=== PATIENT | male | born 1945 | race Caucasian/White ===

== ENCOUNTER → 2024-01-22 12:40 | Emergency (ER) | payer MEDICARE, SELFPAY ==
[2024-01-22 12:44] VITALS: BP 98/59
[2024-01-22 13:06] LABS: % Basophils 0.7 % (0-2); % Eosinophils 1.4 % (0-6); % Immature Granulocytes 0.3 % (0-0.5); % Lymphocytes 16.4 % (20.5-51.1); % Monocytes 6.1 % (1.7-9.3); % Neutrophils 75.1 % (42.2-75.2); Absolute Basophils 0.1 10^3/uL (0-0.2); Absolute Eosinophils 0.2 10^3/uL (0-0.7); Absolute Lymphocytes 1.8 10^3/uL (1.2-3.4); Absolute Monocytes 0.7 10^3/uL (0.1-0.6); Hematocrit 40.6 % (39.0-52.0); Hemoglobin 13.2 g/dL (13.0-18.0); Mean Corp Hgb Conc. 32.5 g/dL (33.0-37.0); Mean Corpuscular Hgb 29.4 pg (27.0-31.0); Mean Corpuscular Volume 90.4 fL (80.0-94.0); Mean Platelet Volume 10.3 fL (7.4-10.4); Nucleated Red Blood Cells % 0 % (-); Platelet Count 182 10^3/uL (130-400); Red Blood Cell Count 4.49 10^6/uL (4.70-6.10); Red Cell Dist. Width 13.5 % (11.5-14.5); White Blood Cell Count 10.7 10^3/uL (4.8-10.8)
[2024-01-22 13:16] LABS: ALT (SGPT) < 10 U/L (0-50); AST (SGOT) 21 U/L (17-59); Albumin 3.9 g/dl (3.5-5.0); Alkaline Phosphatase 114 U/L (38-126); Blood Urea Nitrogen 20 mg/dl (9-20); Calcium 9.2 mg/dl (8.4-10.2); Carbon Dioxide 26 mmol/L (22-30); Chloride 106 mmol/L (98-107); Glucose 130 mg/dl (70-99); Potassium 3.8 mmol/L (3.5-5.1); Sodium 140 mmol/L (135-145); Total Bilirubin 0.9 mg/dl (0.2-1.3); Total Protein 6.9 g/dl (6.3-8.2); eGFR > 60.00
== END ==
LOC: EMR 12:40
PROVIDERS: EMERGENCY PHYSICIAN Emergency Medicine
DX: R00.0 Tachycardia, unspecified (principal); I95.9 Hypotension, unspecified
CPT/HCPCS: 80053; 85025; 93005

== ENCOUNTER → 2024-04-04 15:53 | Outpatient (REF) | payer MEDICARE, SELFPAY | LOC: HWRCS 15:53 | PROVIDERS: ATTENDING PHYSICIAN Internal Medicine Cardiovascular Disease; FAMILY PHYSICIAN Family Medicine | DX: I48.0 Paroxysmal atrial fibrillation (principal); G20.A1 Parkinson's disease without dyskinesia, without mention of fluctuations; R29.6 Repeated falls | CPT/HCPCS: 93306 ==

== ENCOUNTER → 2024-04-16 06:47 | Outpatient (REF) | payer MEDICARE, SELFPAY ==
[2024-04-16] MEDS: LEXISCAN 0.4 MG IV (08:56)
== END ==
LOC: RCS 06:47
PROVIDERS: ATTENDING PHYSICIAN Internal Medicine Cardiovascular Disease; FAMILY PHYSICIAN Family Medicine
DX: I48.0 Paroxysmal atrial fibrillation (principal); G20.A1 Parkinson's disease without dyskinesia, without mention of fluctuations; R29.6 Repeated falls
CPT/HCPCS: 78452; 93017; A9500; J2785

== ENCOUNTER 2024-06-06 22:50 | Inpatient (IN) | payer MEDICARE, SELFPAY ==
[2024-06-06 18:13] VITALS: BP 102/55
[2024-06-06 18:32] LABS: % Basophils 0.5 % (0-2); % Eosinophils 0.7 % (0-6); % Immature Granulocytes 0.5 % (0-0.5); % Lymphocytes 8.4 % (20.5-51.1); % Monocytes 8.8 % (1.7-9.3); % Neutrophils 81.1 % (42.2-75.2); Absolute Basophils 0.1 10^3/uL (0-0.2); Absolute Eosinophils 0.1 10^3/uL (0-0.7); Absolute Immature Granulocytes 0.1 10^3/uL (0-0.05); Absolute Lymphocytes 1.1 10^3/uL (1.2-3.4); Absolute Monocytes 1.2 10^3/uL (0.1-0.6); Absolute Neutrophils 10.8 10^3/uL (1.4-6.5); Hemoglobin 12.3 g/dL (13.0-18.0); Mean Corp Hgb Conc. 34.2 g/dL (33.0-37.0); Mean Corpuscular Hgb 29.6 pg (27.0-31.0); Mean Corpuscular Volume 86.5 fL (80.0-94.0); Mean Platelet Volume 10.1 fL (7.4-10.4); Nucleated Red Blood Cells % 0 % (-); Platelet Count 218 10^3/uL (130-400); Red Blood Cell Count 4.16 10^6/uL (4.70-6.10); Red Cell Dist. Width 13.3 % (11.5-14.5); White Blood Cell Count 13.2 10^3/uL (4.8-10.8)
[2024-06-06 18:48] LABS: COVID-19 Antigen Negative (Negative)
[2024-06-06 19:06] LABS: ALT (SGPT) 10 U/L (0-50); AST (SGOT) 43 U/L (17-59); Albumin 3.6 g/dl (3.5-5.0); Alkaline Phosphatase 87 U/L (38-126); Blood Urea Nitrogen 23 mg/dl (9-20); Calcium 8.7 mg/dl (8.4-10.2); Carbon Dioxide 25 mmol/L (22-30); Chloride 102 mmol/L (98-107); Creatine Phosphokinase 428 U/L (55-170); Glucose 121 mg/dl (70-99); Potassium 3.5 mmol/L (3.5-5.1); Sodium 139 mmol/L (135-145); Total Bilirubin 1.7 mg/dl (0.2-1.3); Total Protein 6.3 g/dl (6.3-8.2); eGFR 56.93
[2024-06-06 19:08] VITALS: BP 132/87
--- NOTE | 2024-06-06 19:11 | ED.GENMED ---
History of Present Illness
<EVELYN Mcdowell - Last Filed: 06/06/24 19:59>
General
Chief Complaint: Change in Mental Status
Source: patient
Exam Limitations: altered mental status
Time Seen by Provider: 06/06/24 19:08
Nursing documentation reviewed up to this point in time: agreed with
History of Present Illness
History of Present Illness:
Pt is a 78 y/o M with pmhx of parkinsons who presents with his son and has complaints of altered mental status and multiple falls x 4 days. The pt's son reports that the pt has been falling multiple times a day since Sunday, one of which included a
posterior head injury. There are no visible signs of head injury. The pt reports lightheadedness when he stands up and pain and weakness in his left lower extremity when he attempts to bear weight on the leg. He usually ambulates with a walker for
assistance but recently he has been unable to walk. He has had 3 falls today alone. There is associated back pain, left hip pain that radiates up his left side, confusion, and expressive aphasia. The pt reports dark urination possibly with blood
which started yesterday. He admitted that he has not been hydrating well recently. Denies fever, chest pain, SOB, numbness, tingling, dysuria, headache, neck pain, or weakness in the bilateral upper extremities and right lower extremity.
Past History
<EVELYN Mcdowell - Last Filed: 06/06/24 19:59>
Past History
ED Past Medical History: HTN, Hypercholesterolemia and Other (Parkinson's disease)
ED Past Surgical History: Appendectomy and Cholecystectomy
Social History
Tobacco: Non-smoker
Alcohol: Former (Beer)
Drug: None
Personal:
Living: with family
Review of Systems
<EVELYN Mcdowell - Last Filed: 06/06/24 19:59>
Review of Systems
Allergies reviewed?: Yes
Other source history: family (son)
Constitutional: Reports no symptoms
EENT: Reports no symptoms
Respiratory: Reports no symptoms
Cardiac: Reports no symptoms
ABD/GI: Reports no symptoms
: Reports dark urine
Musculoskeletal: Reports joint pain (left hip) and back pain
Skin: Reports no symptoms
Neurological: Reports dizzy and weakness (Left lower extremity)
Endocrine: Reports no symptoms
Hematologic/Lymphatic: Reports no symptoms
Psychiatric: Reports no symptoms
Phy Exam
<EVELYN Mcdowell - Last Filed: 06/06/24 19:59>
General Physical Exam
General Presentation: no apparent distress
General age: appears stated age
General Skin: warm and dry
General Habitus: debilitated and elderly
General Mental: confused
General Hydration: dry mucous membranes and poor skin turgor
ENT Exam
ENT Exam: EOMI, neck supple, normocephalic and swallowing well
Eye Exam
Eye Exam: PERRL, EOMI, cornea clear, conjunctiva normal and globe normal
Cardiovascular Exam
Cardiovascular Exam: normal peripheral pulses and tachycardia
Pulmonary Exam
Pulmonary Exam: lungs clear, no respiratory distress, no rales, chest non tender, no crackles, no rhonchi, no stridor, no wheezing and no cough
Gastrointestinal Exam
Gastrointestinal Exam: normal bowel sounds, soft, non distended, no cva tenderness and no indwelling devices
Palpation: left upper quadrant: Minimal tenderness, left lower quadrant: No tenderness, right upper quadrant: No tenderness and right lower quadrant: No tenderness
Neurological Exam
Neurological Exam: CN II-XII intact, abnormal gait, confused, dysarthric and expressive aphasia
NIH Stroke Score
Level of Consciousness: 0 - Alert
LOC questions: 0-Answers both correctly
LOC Commands: 0-Performs both correctly
Best Gaze: 0-Normal
Visual Claire: 0=Normal, no visual loss
Facial palsy: 0=Normal, symmetrical
Motor - Right Arm: 0=No drift 10 seconds
Motor - Left Arm: 0=No drift 10 seconds
Motor - Right Le-No drift 5 seconds
Motor - Left Le-Partial vs. gravity
Limb Ataxia: 1-Present in one limb
Sensation: 0-Normal
Best Language: 1-Mild aphasia
Dysarthria: 1-Mild slurring
Extinction and Inattention: 0-No abnormality
Total Score:: 5
Mental
Mental Status: oriented to person, oriented to place, oriented to time, usual mental status, confused and responds to voice
Describe Speech: dysarthric speech, expressive aphasia and slurred
Cranial
EOM (CN3/6): intact
Motor
Tremors: parkinsonian
Right upper extremity: 5
Right lower extremity: 5
Left upper extremity: 5
Left lower extremity: 3
Musculoskeletal Exam
Musculoskeletal Exam: back pain, no edema and other (Unable to flex left hip from seated position.)
Skin Exam
Skin Exam: normal color, warm/dry and other (Poor skin turgor. No signs of ecchymosis on head or back.)
Psychiatric Exam
Psychiatric Exam: normal mood/affect and other
<Ekaterina Santos DO - Last Filed: 06/06/24 21:57>
NIH Stroke Score
Total Score:: 5
Course
<EVELYN Mcdowell - Last Filed: 06/06/24 19:59>
Orders/Labs/Results
Orders:
Orders
06/06/24 18:25
CBC/With Diff [Complete Blood Count/With Diff] Urgent
CMP [Comprehensive Metabolic Panel] Urgent
COVID-19 Antigen Urgent
Source: Nasal Swab
CPK [Creatine Phosphokinase] Urgent
06/06/24 19:19
CT Head W/o Iv Contrast Urgent
Comment:
Reason For Exam: acute change in MS, frequent falls
06/06/24 19:20
Electrocardiogram (*1) Urgent
Reason for Study: Tachycardia
EKG- Treatment ONCE
0.9% Sodium Chloride 1000 ml [Nss] 1,000 ml IV BOLUS
06/06/24 19:21
CR Chest - 2 Views Urgent
Comment:
Reason For Exam: acute change in MS, tachycardia
06/06/24 19:34
Lactic Acid Urgent
06/06/24 19:37
CR Hip - LT w/wo Pel 2-3 Vw* Urgent
Comment:
Reason For Exam: left hip pain
Include a pelvis x-ray?: Yes
06/06/24 19:55
CT Abd/pelvis W Iv Cont Urgent
Comment:
Reason For Exam: left flank/left lat abd pain--falls, hematuria
06/06/24 20:11
Carbidopa/Levodopa [Sinemet 25-100] 1 tablet PO NOW STA
Metoprolol [Lopressor] 5 mg IV NOW STA
06/06/24 21:24
Urinalysis Reflex To Culture Urgent
Date Specimen was Collected: 06/06/24
Time Specimen was Collected: 21:23
Abnormal Lab Results
06/06/24 06/06/24
18:25 19:34
WBC 13.2 H 10^3/uL
(4.8-10.8)
RBC 4.16 L 10^6/uL
(4.70-6.10)
Hgb 12.3 L g/dL
(13.0-18.0)
Hct 36.0 L %
(39.0-52.0)
Abs Immat Gran (auto) 0.1 H 10^3/uL
(0-0.05)
Absolute Neuts (auto) 10.8 H 10^3/uL
(1.4-6.5)
Absolute Lymphs (auto) 1.1 L 10^3/uL
(1.2-3.4)
Absolute Monos (auto) 1.2 H 10^3/uL
(0.1-0.6)
Neutrophils % 81.1 H %
(42.2-75.2)
Lymphocytes % 8.4 L %
(20.5-51.1)
BUN 23 H mg/dl
(9-20)
Glucose 121 H mg/dl
(70-99)
Lactic Acid 2.3 H mmol/L
(0.7-2.0)
Total Bilirubin 1.7 H mg/dl
(0.2-1.3)
Creatine Kinase 428 H U/L
(55-170)
06/06/24 18:25
06/06/24 18:25
Vital Signs
Initial and Last Documented VS:
Initial Vital Signs
Temp Pulse Resp BP Pulse Ox
97.5 F 78 18 102/55 98
06/06/24 18:13 06/06/24 18:13 06/06/24 18:13 06/06/24 18:13 06/06/24 18:13
Last Documented Vital Signs
Temp Pulse Resp BP Pulse Ox
97.5 F 147 24 132/87 97
06/06/24 18:13 06/06/24 19:09 06/06/24 19:13 06/06/24 19:08 06/06/24 19:09
<Ekaterina Santos, DO - Last Filed: 06/06/24 21:57>
Orders/Labs/Results
Orders:
Orders
06/06/24 18:25
CBC/With Diff [Complete Blood Count/With Diff] Urgent
CMP [Comprehensive Metabolic Panel] Urgent
COVID-19 Antigen Urgent
Source: Nasal Swab
CPK [Creatine Phosphokinase] Urgent
06/06/24 19:19
CT Head W/o Iv Contrast Urgent
Comment:
Reason For Exam: acute change in MS, frequent falls
06/06/24 19:20
Electrocardiogram (*1) Urgent
Reason for Study: Tachycardia
EKG- Treatment ONCE
0.9% Sodium Chloride 1000 ml [Nss] 1,000 ml IV BOLUS
06/06/24 19:21
CR Chest - 2 Views Urgent
Comment:
Reason For Exam: acute change in MS, tachycardia
06/06/24 19:34
Lactic Acid Urgent
06/06/24 19:37
CR Hip - LT w/wo Pel 2-3 Vw* Urgent
Comment:
Reason For Exam: left hip pain
Include a pelvis x-ray?: Yes
06/06/24 19:55
CT Abd/pelvis W Iv Cont Urgent
Comment:
Reason For Exam: left flank/left lat abd pain--falls, hematuria
06/06/24 20:11
Carbidopa/Levodopa [Sinemet 25-100] 1 tablet PO NOW STA
Metoprolol [Lopressor] 5 mg IV NOW STA
06/06/24 21:24
Urinalysis Reflex To Culture Urgent
Date Specimen was Collected: 06/06/24
Time Specimen was Collected: 21:23
Abnormal Lab Results
06/06/24 06/06/24
18:25 19:34
WBC 13.2 H 10^3/uL
(4.8-10.8)
RBC 4.16 L 10^6/uL
(4.70-6.10)
Hgb 12.3 L g/dL
(13.0-18.0)
Hct 36.0 L %
(39.0-52.0)
Abs Immat Gran (auto) 0.1 H 10^3/uL
(0-0.05)
Absolute Neuts (auto) 10.8 H 10^3/uL
(1.4-6.5)
Absolute Lymphs (auto) 1.1 L 10^3/uL
(1.2-3.4)
Absolute Monos (auto) 1.2 H 10^3/uL
(0.1-0.6)
Neutrophils % 81.1 H %
(42.2-75.2)
Lymphocytes % 8.4 L %
(20.5-51.1)
BUN 23 H mg/dl
(9-20)
Glucose 121 H mg/dl
(70-99)
Lactic Acid 2.3 H mmol/L
(0.7-2.0)
Total Bilirubin 1.7 H mg/dl
(0.2-1.3)
Creatine Kinase 428 H U/L
(55-170)
06/06/24 18:25
06/06/24 18:25
Vital Signs
Initial and Last Documented VS:
Initial Vital Signs
Temp Pulse Resp BP Pulse Ox
97.5 F 78 18 102/55 98
06/06/24 18:13 06/06/24 18:13 06/06/24 18:13 06/06/24 18:13 06/06/24 18:13
Last Documented Vital Signs
Temp Pulse Resp BP Pulse Ox
97.5 F 147 24 132/87 97
06/06/24 18:13 06/06/24 19:09 06/06/24 19:13 06/06/24 19:08 06/06/24 19:09
<EVELYN Mcdowell - Last Filed: 06/06/24 19:59>
MDM/Problems Addressed
Differential Diagnosis Includes:
Orthostatic hypotension
Left hip fracture
UTI
Nephrolithiasis
Stroke
<EVELYN Mcdowell - Last Filed: 06/06/24 19:59>
*Critical Care Note
Total Time (30-74mins, 75-104mins- exclusive of procedures): Not Applicable
<Ekaterina Santos DO - Last Filed: 06/06/24 21:57>
*Radiology
Radiology exam reviewed: preliminary read by ED provider (Chest x-ray is unremarkable) and radiology read reviewed
*Pulse Oximetry
Patient hypoxic: no
*EKG
Interpreted by ED Provider?: Yes
Interpretation: abnormal
Comparison EKG: changes noted (A-fib with RVR is new compared to previous EKG April 16 showing normal sinus rhythm with frequent unifocal PVCs)
Rate: tachycardiac
Rhythm: a-fib
[place]: normal axis
Interval: normal QT interval
QRS Pattern: poor R-wave progression
Ischemia: no ischemia
*Vaccine Customer Representative Interpretation
Rate: tachycardiac
Interpretation: abnormal
Rhythm: a-fib
ED Attending Note
<EVELYN Mcdowell - Last Filed: 06/06/24 19:59>
-
Portions of this chart may have been created with voice recognition software.� Occasional wrong word or��sound alike� substitutions may have occurred due to the inherent limitations of voice recognition software.
<Ekaterina Santos DO - Last Filed: 06/06/24 21:57>
ED Attending Note
Patient seen and examined by attending physician: Yes
I performed the substantive portion of visit, reviewed & personally made and approve the management plan that is documented in note by myself or JOHN.: Yes
ED Attending Note:
This is a 78-year-old gentleman who resides at home with his son. He has history of Parkinson's disease, hypertension, hyperlipidemia, PAF maintained on no anticoagulants save for full dose aspirin. He does have history of ambulatory dysfunction,
chronically uses a walker and had suffered frequent falls over a year ago but underwent a course of physical therapy, gait training and has had no recurrent falls throughout this year until this week when he has suffered repeated falls throughout
the week with progressive weakness over the past few days with onset of left low back, left lateral flank to left groin pain over the past 2 days.
He does admit to occasional palpitations, generally brief in nature and currently denies palpitations. He has not had a cough nor shortness of breath, no fevers or chills.
Son concerned with progressive weakness and also noting his father becoming pale and 'glassy eyed' shortly after standing this afternoon which prompted ED visit.
Appetite has been fair. He has had no nausea or vomiting, no diarrhea. He has however noticed some darker urine over the past 2 days with questionable blood tingeing.
GENERAL: 78-year-old gentleman appears somewhat older than stated age, awake and alert, oriented x 3, appears mildly fatigued but otherwise in no acute distress. Moderate intermittent stutter is noted which is chronic and unchanged related to his
Parkinson's. Son is accompanying.
EYE: The head is normocephalic, atraumatic. Pupils equal and reactive. anicteric
NECK: Supple, nontender, no meningismus, no significant adenopathy.
ENT: posterior pharynx is clear, oral mucosa is mildly dry. TM clear b/l, nares patent.
CARDIAC: Irregularly irregular, tachycardic at 110-120 2/6 holosystolic murmur at left sternal border.
LUNGS: Clear breath sounds bilaterally, no acute respiratory distress, no wheezes/rales/rhonchi. Mild tenderness left lateral distal costal margin. No palpable bony abnormality nor crepitus.
ABDOMEN: Soft, nondistended, without focal tenderness, no r/g, mild left CVA tenderness. Normoactive BS.
BACK: No midline bony tenderness. Mild tenderness left lower lumbar paravertebral region.
NEUROLOGICAL: Alert and oriented x3, no focal neuro deficits. Moderate cogwheel rigidity.
SKIN: Warm and dry, normal color, skin intact. No rash.
MUSCULOSKELETAL: No C/C/E. peripheral pulses are full and equal b/l. Mild tenderness about the left posterior hip with moderately restricted range of motion left hip related to pain.
PSYCH: Normal and appropriate interaction.
Concern for acute intracranial trauma, CVA, exacerbation of Parkinson's disease. Concern for occult left hip fracture, left pelvic fracture, concern for left ureteric stone, UTI, pyelonephritis, concern for pneumonia, rib fracture, atelectasis,
dehydration, electrolyte abnormality. This and other entities considered.
Will check CT of the head, CT abdomen pelvis, chest x-ray, left hip and pelvis films.
Labs thus far reveal elevated white blood cell count of 13.2. Mildly elevated BUN with creatinine of 1.3, near patient's baseline.
CPK mildly elevated at 428, concerning for mild rhabdomyolysis.
Monitor shows A-fib with rapid ventricular response. Somewhat soft BP initially has improved to 130 but concern for element of orthostasis with history of lightheadedness and becoming out of bed, weaker with standing.
Will initiate IV fluids.
Will check lactic acid, urinalysis.
Will give his usual evening dose of Sinemet I will give an IV dose of Lopressor for A-fib with RVR.
Due to frequent falls, A-fib, hemodynamic instability patient is at significant risk for further falls, further injury and will require acute hospitalization.
Discharge Plan
Departure
Patient Disposition: Admit
Date of Disposition: 06/06/24
Time of Disposition: 21:55
Admit to: Telemetry
Admit to doctor: Daniel
Presentation/result/management discussed w/ accepting MD/DO: Hospitalist
Condition: Fair
Discharge Problem:
recurrent mechanical falls, left iliopsoas muscle strain, tendon rup, Atrial fibrillation with RVR, Generalized muscle weakness
Prescriptions:
No Action
aspirin 325 mg Tablet
325 mg PO DAILY
metoprolol succinate 25 mg Tablet Extended Release 24 Hr
25 mg PO DAILY
carbidopa-levodopa 25-100 mg Tablet
1.5 tab PO Q4H
Interventions
Interventions:
*Risk Screen - Suicide Last Done: 06/06/24 19:39
*General Assessment Last Done: 06/06/24 19:39
*Neglect/Abuse Screening Last Done: 06/06/24 19:39
ED- Fall Risk Assessment Last Done: 06/06/24 19:14
*ED COVID-19 Vaccine History Last Done: 06/06/24 19:39
ED- Neurological Assessment Last Done: 06/06/24 19:14
ED- Cardiac Assessment Last Done: 06/06/24 19:14
ED Swallowing Screen Last Done: 06/06/24 19:48
Discharge Date and Time
Print Language: TAMAZIGHT
[2024-06-06] MEDS: NSS 1000 IV ×2 (19:35→22:12)
[2024-06-06 19:55] LABS: Lactic Acid 2.3 mmol/L (0.7-2.0)
[2024-06-06 20:00] VITALS: BP 113/69
[2024-06-06 21:11] VITALS: BP 108/69
[2024-06-06] MEDS: SINEMET 25-100 1 TABLET PO (21:25)
[2024-06-06 21:37] LABS: Urine Albumin Trace (Neg - Trace); Urine Bilirubin Negative (Negative); Urine Character Clear (Clear); Urine Color Straw; Urine Glucose Negative (Negative); Urine Ketone Negative (Negative); Urine Leukocyte Negative (Negative); Urine Nitrite Negative (Negative); Urine Occult Blood Negative (Negative); Urine Urobilinogen Negative (Neg - 1+); Urine pH 6.5 (5.0-9.0)
--- NOTE | 2024-06-06 21:56 | HPS.HSE ---
Addendum entered and electronically signed by Jesús Sanchez DO 06/06/24 22:47:
Patient seen and examined independently. Agree with findings and plan as set forth by SAPNA Valencia.
Patient is a 78y M with PMH significant for Parkinson's Disease who presents to ED complaining of frequent falls including multiple falls at home today. Patient and family report increased frequency of falls over the past 4 days. He had several
falls today and notes that he has struck his head multiple times in the past few days during these falls. After one such fall today, patient began to complain of L rib, flank and groin pain. He presented to the ED for further evaluation and
treatment.
Ass:
Ambulatory Dysfunction with Frequent Falls
Parkinson's Disease
Left Iliopsoas Tendon Rupture
Mild Rhabdomyolysis
Paroxysmal Atrial Fibrillation
Plan:
Admit for further evaluation and treatment.
Pain control, PT / OT evaluations.
Very limited L hip flexion due to iliopsoas tendon rupture.
Follow for any improvement in mobility.
Patient will likely require placement / SNF at discharge.
Continue current Sinemet dosing without changes.
Check orthostatic signs to rule this out as contributor to his falls / gait dysfunction.
Continue metoprolol for rate control and titrate as needed.
Patient is not on chronic OAC due to frequent falls. Continue ASA.
Check or
Original Note:
Family Physician
-
Family Physician:
Chief Complaint
-
frequent falls
History of Present Illness
78 y/o M with pmhx of Parkinson, atrial fib who presents with his son and has complaints of altered mental status and multiple falls x 4 days. The pt's son reports that the pt has been falling multiple times a day since Sunday/ he hit sides of head
multiple times. patient stated lightheaded, dizzy prior to the fall. today he was on the multiple hours. he usually walks with walker but recently he is having trouble even with the walker. his balance is very off recently. patient complaining of
left hip pain radiating to his groin. he is also complained of left sided ribs pain. patient has chornic repressive aphasia. denied ALONSO. denied congestion, cough. denied fever, chills, chest pain, sob. denied abdominal pain,n,v,d. denied dysuria or
hematuria. son noticing dad confused.
CT with As described, findings compatible with injury to the left iliopsoas tendon. Findings likely represent rupture of the insertion of the iliopsoas tendon. Enlargement of the iliac's muscle, which could be from muscle tear, but could also
represent sequela of previous hematoma. No evidence for significant residual high density hematoma on the present exam.No evidence for bony fracture.
patient was also noted in atrial fib with RVR. he received a dose of metoprolol and normal saline x2 bag in ER. admitting for further management.
Medical History
Past Medical History
Past Medical History: Reports Other
Additional Past Medical History:
Parkinson disease
anxiety
atrial fib
Past Surgical History: Reports Other
Additional Past Surgical History:
appendectomy
cholecystectomy
Social History
Tobacco: Non-smoker
Alcohol: None
Drug: None
Personal: Single
Living: With Family
Family History
Family History: Not pertinent
Allergies / Home Medications
Allergies reflects when Allergies were last updated in [employer]
Home Medications with original date entered in [employer]
Allergy/Medication List:
Allergies
Allergy/AdvReac Type Severity Reaction Status Date / Time
No Known Allergies Allergy Verified 06/06/24 18:15
Home Medications
aspirin 325 mg tablet 325 mg PO DAILY 06/06/24
carbidopa 25 mg-levodopa 100 mg tablet 1.5 tab PO Q4H 06/06/24
metoprolol succinate 25 mg tablet,extended release 24 hr 25 mg PO DAILY 06/06/24
Review of Systems
-
Constitutional: Reports No Symptoms
EENT: Reports No Symptoms
Respiratory: Reports No Symptoms
Cardiac: Reports No Symptoms
Abdomen/GI: Reports No Symptoms
: Reports No Symptoms
Musculoskeletal: Reports No Symptoms
Skin: Reports No Symptoms
Neurological: Reports Dizzy, Weakness and Other (off balance)
Endocrine: Reports No Symptoms
Hematologic/Lymphatic: Reports No Symptoms
Psych: Reports No Symptoms
Physical Exam
Vital Signs
Vital Signs
Temp Pulse Resp BP Pulse Ox
97.5 F 147 24 132/87 97
06/06/24 18:13 06/06/24 19:09 06/06/24 19:13 06/06/24 19:08 06/06/24 19:09
Physical Exam
General: Well Developed, Well Nourished and No Apparent Distress
HEENT: NormoCephalic, Moist mucous membranes and Atraumatic
Respiratory: Clear
Cardiac: S1/S2 and Regular Rhythm; No Murmur or Rub
GI: Soft, Non Tender, Non Distended and Normal Bowel Sounds; No Organomegaly
Rectal: Deferred by Provider
Musculoskeletal: No Clubbing, No Cyanosis and No Edema
Skin: No Rash
Neuro: AO x 3 and Nonfocal/grossly intact
Psych: Calm
Laboratory Results
-
06/06/24 18:25
06/06/24 18:25
Laboratory Results
Lactic Acid 2.3 mmol/L (0.7-2.0) H 06/06/24 19:34
Total Bilirubin 1.7 mg/dl (0.2-1.3) H 06/06/24 18:25
AST 43 U/L (17-59) 06/06/24 18:25
ALT 10 U/L (0-50) 06/06/24 18:25
Alkaline Phosphatase 87 U/L (38-126) 06/06/24 18:25
Data Reviewed
-
Diagnostic Radiology: Report Reviewed by me
CT Scan: Report Reviewed by me
Lab Data: Labs Reviewed by me
Impression/Plan
-
#worsening weakness/fall/rhabdo
#left sided hip pain radiating to groin likely from rupture of the iliopsoas tendon
-CPK 428
-CT abdomen pelvis As described, findings compatible with injury to the left iliopsoas tendon. Findings likely represent rupture of the insertion of the iliopsoas tendon. Enlargement of the iliac's muscle, which could be from muscle tear, but could
also represent sequela of previous hematoma. No evidence for significant residual high density hematoma on the present exam.No evidence for bony fracture
-Hip X ray with no acute fracture
-head CT with No evidence of acute intracranial abnormality.
-PT/OT consult
-lidocaine patch, Tylenol ATC
-trend CPK, lactic,
-obtain orthostatic
-fluids continued
#metabolic encephalopathy unclear cause
-CT head negative
-SIRS as evident by wbc 13.2, lactic 2.3
-UA and covid negative
-chest x ray The lungs appear radiographically clear.Mild cardiomegaly with no evidence for pulmonary edema or pleural effusion.
-patient is afebrile
-at present mentating well.
-CTm
#atrial fib with RVR
=HR in 140's
-EKG with atrial fib with RVR
-HR controlled since Lopressor IV
-Metoprolol continued
# Parkinson disease
-Carbidopa levodopa continued
# DVT prophylaxis
-Lovenox subcu
# CODE STATUS
-Full code
[2024-06-06 22:00] VITALS: BP 119/76
[2024-06-06 23:00] VITALS: BP 125/73
[2024-06-07] VITALS (10 sets, daily range): BP systolic 76–151; BP diastolic 50–83; PULSE 72–92; BMI 21.0
[2024-06-07 02:07] LABS: Lactic Acid 0.8 mmol/L (0.7-2.0)
[2024-06-07] MEDS: SINEMET 25-100 1.5 TABLET PO ×6 (02:07→20:59)
[2024-06-07] MEDS: NSS 1000 IV (02:10)
--- NOTE | 2024-06-07 02:40 | PTCARENOTE ---
Pt received from ER [id number] able to make his needs known.Pt has hx of parkinsons.Pt on a bed alarm & safety measures maintained.Plan of care continued.
[2024-06-07 06:56] LABS: Hematocrit 31.4 % (39.0-52.0); Mean Corpuscular Hgb 31.1 pg (27.0-31.0); Mean Corpuscular Volume 88.7 fL (80.0-94.0); Mean Platelet Volume 10.2 fL (7.4-10.4); Platelet Count 158 10^3/uL (130-400); Red Blood Cell Count 3.54 10^6/uL (4.70-6.10); Red Cell Dist. Width 13.3 % (11.5-14.5); White Blood Cell Count 7.7 10^3/uL (4.8-10.8)
[2024-06-07 07:26] LABS: Blood Urea Nitrogen 19 mg/dl (9-20); Carbon Dioxide 24 mmol/L (22-30); Chloride 107 mmol/L (98-107); Creatine Phosphokinase 397 U/L (55-170); Estimated Creatinine Clearance 66 ml/min; Glucose 85 mg/dl (70-99); Potassium 3.3 mmol/L (3.5-5.1); Sodium 140 mmol/L (135-145); eGFR > 60.00
[2024-06-07] MEDS: ASPIRIN 325 MG PO (10:22)
[2024-06-07] MEDS: TYLENOL 1000 MG PO ×3 (10:22→21:46)
[2024-06-07] MEDS: TOPROL XL 25 MG PO (10:23)
[2024-06-07] MEDS: LIDOCAINE 4% PATCH 1 PATCH TOPICAL (10:23)
[2024-06-07] MEDS: DESENEX/MITRAZOL/ZEASORB 1 APPLIC TOPICAL ×2 (10:23→20:47)
[2024-06-07 12:12] LABS: Magnesium 1.7 mg/dl (1.6-2.3)
--- NOTE | 2024-06-07 12:13 | W.PN.HOSP.TC ---
Today's Communication/Plan
-
Midodrine 3 times daily
Replete potassium
TEDS stockings
PT/OT
Stop IV fluids
Assessment / Plan
Assessment / Plan
Gen-AAOx3, NAD
HEENT-NC, AT, anicteric, clear oral mm
Neck-supple
CV-reg, no M, +S1/S2
Lungs-clear B/L
Abd-soft, NT, ND
Ext-no edema
Musculoskeletal-no cyanosis, clubbing
Skin-warm and dry
Neuro-grossly non-focal
Psych-calm, cooperative
Cognitive dysfunction -doubt this represents acute TME. 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 Will defer to his outpatient neurologist after discharge. Discussed with family.
Orthostatic hypotension - possibly due to Parkinson's disease related dysautonomia versus adverse drug reaction to carbidopa/levodopa versus other cause. Compression stockings ordered. Midodrine 3 times daily.
Acute traumatic left iliopsoas tendon rupture -unclear if due to fall or cause of fall. Treat conservatively for now. Follow-up with orthopedics after discharge. PT/OT.
Hypokalemia -replete orally. Magnesium 1.7.
Mild acute traumatic rhabdomyolysis -CPK slightly elevated and trending down.
Parkinson's disease -continue carbidopa/levodopa.
Atrial fibrillation - unknown type. Not on anticoagulation due to gait instability. Continue aspirin.
Anxiety disorder
Full code
I updated patient's son Stefano on the phone. All questions answered.
Anticipated Discharge: > 48 hours
Subjective/Interval History
-
Date of Service: June 07, 2024
Patient seen/examined. Complaining of LLE pain in groin.
Objective Data
-
Labs:
Laboratory Results
06/07/24
06:38
WBC 7.7
Hgb 11.0 L
Hct 31.4 L
Plt Count 158 D
Sodium 140
Potassium 3.3 L
Chloride 107
Carbon Dioxide 24
BUN 19
Creatinine 0.9
Glucose 85
Calcium 8.0 L
Vital Signs:
Vital Signs
Temp Pulse Resp BP Pulse Ox
98.2 F 73 22 126/70 98
06/07/24 07:23 06/07/24 10:23 06/07/24 07:23 06/07/24 10:23 06/07/24 07:23
Review of Systems
-
History Source: Patient
All other systems: Reviewed and negative
[2024-06-07] MEDS: KCL 40 MEQ PO (12:37)
[2024-06-07] MEDS: ProAmatine 10 MG PO ×2 (12:38→18:04)
--- NOTE | 2024-06-07 13:35 | CM ---
CM following re: discharge planning.
Reviewed pt's chart, met with pt and spoke to pt's son Stefano.
Pt is a 78 year old male, admitted with primary dx of Ambulatory dysfunctions.
Pt reports he lives with son in a 2SH, 2 steps to enter, has 2 supportive children. Pt reports he ambulates with a walker and has been experiencing difficulties with walking in the past 2 weeks.
PT and OT evaluations noted - SNF level of care recommended. Both pt and his son are aware, expressed their agreement with SNF level of care. A list of SNFs provided, following SNFs preferred: [facility], [facility], [facility]. A referral to above SNFs made. Awaiting for determination.
D/C plan: preferred SNF. pt will need an auth from [facility] fos SNF level at accepted SNF.
CM will follow to assist pt with discharge to a preferred SNF.
[2024-06-07] MEDS: LOVENOX 40 MG SC (18:04)
[2024-06-07] MEDS: KCL 20 MEQ PO (20:46)
[2024-06-08] VITALS (7 sets, daily range): BP systolic 123–157; BP diastolic 69–84; PULSE 70–84
[2024-06-08] MEDS: SINEMET 25-100 1.5 TABLET PO ×6 (02:55→22:30)
[2024-06-08] MEDS: ASPIRIN 325 MG PO (07:58)
[2024-06-08] MEDS: ProAmatine 10 MG PO ×3 (07:58→17:43)
[2024-06-08] MEDS: TYLENOL 1000 MG PO ×3 (07:58→22:29)
[2024-06-08] MEDS: DESENEX/MITRAZOL/ZEASORB 1 APPLIC TOPICAL ×2 (07:58→20:52)
[2024-06-08] MEDS: TOPROL XL 25 MG PO (07:59)
[2024-06-08] MEDS: KCL 20 MEQ PO ×2 (08:00→20:52)
[2024-06-08] MEDS: LIDOCAINE 4% PATCH 1 PATCH TOPICAL (08:01)
[2024-06-08] MEDS: FLUSH (NSS) 1 FLUSH IV (08:03)
[2024-06-08 08:12] LABS: Blood Urea Nitrogen 19 mg/dl (9-20); Calcium 8.3 mg/dl (8.4-10.2); Carbon Dioxide 24 mmol/L (22-30); Chloride 108 mmol/L (98-107); Estimated Creatinine Clearance 75 ml/min; Glucose 95 mg/dl (70-99); Potassium 3.8 mmol/L (3.5-5.1); Sodium 142 mmol/L (135-145); eGFR > 60.00
--- NOTE | 2024-06-08 10:00 | W.PN.HOSP.TC ---
Today's Communication/Plan
-
Continue PT/OT
Discharge planning
Assessment / Plan
Assessment / Plan
Gen-AAOx3, NAD
HEENT-NC, AT, anicteric, clear oral mm
Neck-supple
CV-reg, no M, +S1/S2
Lungs-clear B/L
Abd-soft, NT, ND
Ext-no edema
Musculoskeletal-no cyanosis, clubbing
Skin-warm and dry
Neuro-grossly non-focal
Psych-calm, cooperative
Cognitive dysfunction -doubt this represents acute TME. 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 Will defer to his outpatient neurologist after discharge. Discussed with family.
Orthostatic hypotension - possibly due to Parkinson's disease related dysautonomia versus adverse drug reaction to carbidopa/levodopa versus other cause. Compression stockings ordered. Midodrine 3 times daily.
Acute traumatic left iliopsoas tendon rupture -unclear if due to fall or cause of fall. Treat conservatively for now. Follow-up with orthopedics after discharge. PT/OT.
Hypokalemia -resolved.
Mild acute traumatic rhabdomyolysis -CPK slightly elevated and trending down.
Parkinson's disease -continue carbidopa/levodopa.
Atrial fibrillation - unknown type. Not on anticoagulation due to gait instability. Continue aspirin.
Anxiety disorder
Full code
Dispo -medically stable for discharge to SNF.
Anticipated Discharge: Within 24 hours
Subjective/Interval History
-
Date of Service: June 08, 2024
Patient seen and examined. Complaining of left groin pain with hip flexion.
Objective Data
-
Labs:
Laboratory Results
06/08/24
06:36
Sodium 142
Potassium 3.8
Chloride 108 H
Carbon Dioxide 24
BUN 19
Creatinine 0.8
Glucose 95
Calcium 8.3 L
Vital Signs:
Vital Signs
Temp Pulse Resp BP Pulse Ox
97.6 F 63 18 148/78 98
06/08/24 06:58 06/08/24 07:59 06/08/24 06:58 06/08/24 07:59 06/08/24 07:53
I&O
06/07/24 06/08/24 06/09/24
06:59 06:59 06:59
Intake Total 620 / 620
Balance 620 / 620
Review of Systems
-
History Source: Patient
All other systems: Reviewed and negative
--- NOTE | 2024-06-08 15:42 | PTCARENOTE ---
Pt awake and alert; oriented to self; place; difficult to understand conversation; pt's voice mumbled/? expressive aphasia. RAO slowly/stiffly; able to feed self with assistance In bed for shift. VSS. Telemetry:NSR with PVC's; occ trigeminy. On
room air- pulseox 98%, no SOB noted. Abd soft, rounded, joey PO well. Condom cath P/O mod amts clear leighton urine. Resting in bed at present. Will continue to monitor.
[2024-06-08] MEDS: LOVENOX 40 MG SC (17:42)
[2024-06-09] VITALS (10 sets, daily range): BP systolic 89–150; BP diastolic 52–81; PULSE 68–82
[2024-06-09] MEDS: SINEMET 25-100 1.5 TABLET PO ×6 (02:52→22:13)
[2024-06-09] MEDS: ASPIRIN 325 MG PO (09:28)
[2024-06-09] MEDS: ProAmatine 10 MG PO ×3 (09:28→17:10)
[2024-06-09] MEDS: KCL 20 MEQ PO ×2 (09:28→22:12)
[2024-06-09] MEDS: TYLENOL 1000 MG PO ×3 (09:28→22:13)
[2024-06-09] MEDS: LIDOCAINE 4% PATCH 1 PATCH TOPICAL (09:29)
[2024-06-09] MEDS: TOPROL XL 25 MG PO (09:29)
[2024-06-09] MEDS: DESENEX/MITRAZOL/ZEASORB 1 APPLIC TOPICAL ×2 (09:33→22:20)
[2024-06-09] MEDS: FLUSH (NSS) 1 FLUSH IV ×2 (09:34→09:35)
--- NOTE | 2024-06-09 12:22 | W.PN.HOSP.TC ---
Today's Communication/Plan
-
monitor vitals
see plan
awaiting SNF
Assessment / Plan
Assessment / Plan
Gen-AAOx3, NAD
HEENT-NC, AT, anicteric, clear oral mm
Neck-supple
CV-reg, no M, +S1/S2
Lungs-clear B/L
Abd-soft, NT, ND
Ext-no edema
Musculoskeletal-no cyanosis, clubbing
Skin-warm and dry
Neuro-grossly non-focal
Psych-calm, cooperative
Cognitive dysfunction -doubt this represents acute TME. 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 Will defer to his outpatient neurologist after discharge. Discussed with family.
Orthostatic hypotension - possibly due to Parkinson's disease related dysautonomia versus adverse drug reaction to carbidopa/levodopa versus other cause. Compression stockings ordered. Midodrine 3 times daily.
Acute traumatic left iliopsoas tendon rupture -unclear if due to fall or cause of fall. Treat conservatively for now. Follow-up with orthopedics after discharge. PT/OT.
Hypokalemia -resolved.
Mild acute traumatic rhabdomyolysis -CPK slightly elevated and trending down.
Parkinson's disease -continue carbidopa/levodopa.
Atrial fibrillation - unknown type. Not on anticoagulation due to gait instability. Continue aspirin.
Anxiety disorder
Full code
Dispo -medically stable for discharge to SNF.
Anticipated Discharge: Within 24 hours
Subjective/Interval History
-
Date of Service: June 09, 2024
denies pain
Objective Data
-
Vital Signs:
Vital Signs
Temp Pulse Resp BP Pulse Ox
98.4 F 76 18 124/69 100
06/09/24 11:24 06/09/24 11:24 06/09/24 11:24 06/09/24 11:24 06/09/24 11:24
I&O
06/08/24 06/09/24 06/10/24
06:59 06:59 06:59
Intake Total 620 / 620 900 / 900
Output Total 550 / 550
Balance 620 / 620 350 / 350
--- NOTE | 2024-06-09 15:00 | PN.CDI ---
CDI
- -
CDI:
Physician Documentation Request
Admit Date: 06/06/24 22:50
Dear Doctor William,
Clinical Indicators:
Patient admitted with weakness and multiple falls.
06/06 H & P, 'The pt's son reports that the pt has been falling multiple times a day since Sunday/ he hit sides of head multiple times. patient stated lightheaded, dizzy prior to the fall....Check orthostatic signs to rule this out as contributor to
his falls / gait dysfunction.'
06/07 PN, 'Orthostatic hypotension - possibly due to Parkinson's disease related dysautonomia versus adverse drug reaction to carbidopa/levodopa versus other cause
TEDS stockings ordered.
Midodrine 10 mg po TID ordered.
Orthostatic BP's:
06/07/24
12:16 06/09/24
12:44
Sitting- Blood Pressure 130/50 132/71
Standing- Blood Pressure 76/54 89/52
Based on the above, could you clarify in the progress notes, the likely etiology of falls/gait dysfunction:
Neurogenic orthostatic hypotension due to Parkinson's
Non neurogenic orthostatic hypotension due to adverse drug reaction
Other, please specify
Use of terms such as suspected, likely, concern for, or probable (associated with a specific diagnosis that is being evaluated, monitored, or treated as if it exists) are acceptable and can be coded in the inpatient setting, when documented at the
time of discharge.
Thank you,
Vi Melendez RN BSN
CDI Specialist
available via tiger text
Please use your independent medical judgment in providing your response.
[2024-06-09] MEDS: LOVENOX 40 MG SC (17:10)
[2024-06-10] VITALS (7 sets, daily range): BP systolic 83–160; BP diastolic 42–87; PULSE 74–85
[2024-06-10] MEDS: SINEMET 25-100 1.5 TABLET PO ×6 (03:02→22:39)
[2024-06-10 07:47] LABS: % Basophils 0.6 % (0-2); % Eosinophils 4.7 % (0-6); % Immature Granulocytes 0.4 % (0-0.5); % Monocytes 6.5 % (1.7-9.3); % Neutrophils 71.8 % (42.2-75.2); Absolute Basophils 0.1 10^3/uL (0-0.2); Absolute Eosinophils 0.4 10^3/uL (0-0.7); Absolute Lymphocytes 1.2 10^3/uL (1.2-3.4); Absolute Monocytes 0.5 10^3/uL (0.1-0.6); Absolute Neutrophils 5.6 10^3/uL (1.4-6.5); Hemoglobin 12.4 g/dL (13.0-18.0); Mean Corp Hgb Conc. 33.5 g/dL (33.0-37.0); Mean Corpuscular Hgb 30.2 pg (27.0-31.0); Mean Platelet Volume 10.8 fL (7.4-10.4); Nucleated Red Blood Cells % 0 % (-); Platelet Count 205 10^3/uL (130-400); Red Blood Cell Count 4.11 10^6/uL (4.70-6.10); Red Cell Dist. Width 13.6 % (11.5-14.5); White Blood Cell Count 7.7 10^3/uL (4.8-10.8)
[2024-06-10 08:13] LABS: Blood Urea Nitrogen 16 mg/dl (9-20); Calcium 8.6 mg/dl (8.4-10.2); Carbon Dioxide 26 mmol/L (22-30); Chloride 105 mmol/L (98-107); Estimated Creatinine Clearance 75 ml/min; Glucose 77 mg/dl (70-99); Potassium 4.1 mmol/L (3.5-5.1); Sodium 140 mmol/L (135-145); eGFR > 60.00
[2024-06-10] MEDS: TOPROL XL 25 MG PO (09:59)
[2024-06-10] MEDS: ASPIRIN 325 MG PO (09:59)
[2024-06-10] MEDS: TYLENOL 1000 MG PO ×3 (09:59→22:41)
[2024-06-10] MEDS: ProAmatine 10 MG PO ×3 (09:59→17:26)
[2024-06-10] MEDS: DESENEX/MITRAZOL/ZEASORB 1 APPLIC TOPICAL ×2 (10:00→20:10)
[2024-06-10] MEDS: KCL 20 MEQ PO ×2 (10:00→20:10)
[2024-06-10] MEDS: LIDOCAINE 4% PATCH 1 PATCH TOPICAL (10:00)
[2024-06-10] MEDS: FLUSH (NSS) 1 FLUSH IV ×2 (10:01→10:02)
--- NOTE | 2024-06-10 11:38 | W.PN.HOSP.TC ---
Addendum entered and electronically signed by Guru Thomas MD 06/10/24 11:41:
Neurogenic orthostatic hypotension due to Parkinson's
Original Note:
Today's Communication/Plan
-
monitor vitals
see plan
dc pending placement; CM aware
Assessment / Plan
Assessment / Plan
Gen-AAOx3, NAD
HEENT-NC, AT, anicteric, clear oral mm
Neck-supple
CV-reg, no M, +S1/S2
Lungs-clear B/L
Abd-soft, NT, ND
Ext-no edema
Musculoskeletal-no cyanosis, clubbing
Skin-warm and dry
Neuro-grossly non-focal
Psych-calm, cooperative
Cognitive dysfunction -doubt this represents acute TME. 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 Will defer to his outpatient neurologist after discharge. Discussed with family.
Orthostatic hypotension - possibly due to Parkinson's disease related dysautonomia versus adverse drug reaction to carbidopa/levodopa versus other cause. Compression stockings ordered. Midodrine 3 times daily.
Acute traumatic left iliopsoas tendon rupture -unclear if due to fall or cause of fall. Treat conservatively for now. Follow-up with orthopedics after discharge. PT/OT.
Hypokalemia -resolved.
Mild acute traumatic rhabdomyolysis -CPK slightly elevated and trending down.
Parkinson's disease -continue carbidopa/levodopa.
Atrial fibrillation - unknown type. Not on anticoagulation due to gait instability. Continue aspirin.
Anxiety disorder
Full code
Dispo -medically stable for discharge to SNF. CM aware
Anticipated Discharge: Within 24 hours
Subjective/Interval History
-
Date of Service: June 10, 2024
denies pain
Objective Data
-
Labs:
Laboratory Results
06/10/24
06:16
WBC 7.7
Hgb 12.4 L
Hct 37.0 L
Plt Count 205 D
Sodium 140
Potassium 4.1
Chloride 105
Carbon Dioxide 26
BUN 16
Creatinine 0.8
Glucose 77
Calcium 8.6
Vital Signs:
Vital Signs
Temp Pulse Resp BP Pulse Ox
98.4 F 71 20 135/75 99
06/10/24 07:02 06/10/24 09:59 06/10/24 07:02 06/10/24 09:59 06/10/24 07:02
I&O
06/09/24 06/10/24 06/11/24
06:59 06:59 06:59
Intake Total 900 / 900 480 / 480
Output Total 550 / 550 1275 / 1275
Balance 350 / 350 -795 / -795
[2024-06-10] MEDS: LOVENOX 40 MG SC (17:26)
--- NOTE | 2024-06-10 17:44 | CM ---
Spoke with pt and son Stefano.
Pt and Stefano picked [facility] .
Will need auth with [facility]
Spoke with Roxanne from [facility] she will provide NPI.
PLAn To [facility] after auth
[2024-06-11] MEDS: SINEMET 25-100 1.5 TABLET PO ×6 (03:44→21:14)
[2024-06-11 03:50] VITALS: BP 126/65; BP 148/91; PULSE 72; PULSE 82
[2024-06-11 06:00] VITALS: BMI 20.6
[2024-06-11 07:59] VITALS: BP 134/67
[2024-06-11] MEDS: KCL 20 MEQ PO ×2 (08:43→20:54)
[2024-06-11] MEDS: ASPIRIN 325 MG PO (08:43)
[2024-06-11] MEDS: DESENEX/MITRAZOL/ZEASORB 1 APPLIC TOPICAL ×2 (08:43→21:15)
[2024-06-11] MEDS: LIDOCAINE 4% PATCH 1 PATCH TOPICAL (08:44)
[2024-06-11] MEDS: ProAmatine 10 MG PO ×3 (08:44→17:40)
[2024-06-11] MEDS: TOPROL XL 25 MG PO (08:45)
[2024-06-11] MEDS: TYLENOL 1000 MG PO ×3 (08:45→21:11)
[2024-06-11] MEDS: FLUSH (NSS) 1 FLUSH IV (08:46)
[2024-06-11 09:00] LABS: % Basophils 0.6 % (0-2); % Eosinophils 4.8 % (0-6); % Immature Granulocytes 0.4 % (0-0.5); % Lymphocytes 15.6 % (20.5-51.1); % Monocytes 6.9 % (1.7-9.3); % Neutrophils 71.7 % (42.2-75.2); Absolute Eosinophils 0.5 10^3/uL (0-0.7); Absolute Lymphocytes 1.5 10^3/uL (1.2-3.4); Absolute Monocytes 0.7 10^3/uL (0.1-0.6); Absolute Neutrophils 6.9 10^3/uL (1.4-6.5); Hematocrit 37.5 % (39.0-52.0); Hemoglobin 12.5 g/dL (13.0-18.0); Mean Corp Hgb Conc. 33.3 g/dL (33.0-37.0); Mean Corpuscular Hgb 30.3 pg (27.0-31.0); Mean Platelet Volume 10.7 fL (7.4-10.4); Platelet Count 210 10^3/uL (130-400); Red Blood Cell Count 4.12 10^6/uL (4.70-6.10); Red Cell Dist. Width 13.7 % (11.5-14.5); White Blood Cell Count 9.6 10^3/uL (4.8-10.8)
[2024-06-11 09:01] LABS: Absolute Basophils 0.1 10^3/uL (0-0.2); Nucleated Red Blood Cells % 0 % (-)
[2024-06-11 10:04] LABS: Blood Urea Nitrogen 18 mg/dl (9-20); Calcium 8.8 mg/dl (8.4-10.2); Carbon Dioxide 26 mmol/L (22-30); Chloride 105 mmol/L (98-107); Estimated Creatinine Clearance 65 ml/min; Glucose 80 mg/dl (70-99); Potassium 4.5 mmol/L (3.5-5.1); Sodium 140 mmol/L (135-145); eGFR > 60.00
[2024-06-11 10:10] VITALS: BP 108/63; BP 95/63; PULSE 75
--- NOTE | 2024-06-11 10:12 | CM ---
Addendum entered by Lisa Jacobo RN 06/11/24 12:58:
spoke with Sofiya moraes she said pt does not have out of network benefits. She said she will contact [place] to assist with auth.[facility] are in network but do not have beds today.
Waiting [facility] determination on auth .
Original Note:
Pt and Stefano picked [facility] .
Called [facility] for auth with [facility] . Spoke with Payam arshad started Reference # [id number] Clinical faxed to [phone]
Spoke with Roxanne from [facility] she has bed after auth obtained.
[facility]
report [phone]
fax [phone]
PLAn To [facility] after auth
[2024-06-11 11:54] VITALS: BP 143/54
--- NOTE | 2024-06-11 12:21 | W.PN.HOSP.TC ---
Today's Communication/Plan
-
Monitor vital signs
see plan
Discharge pending placement
Assessment / Plan
Assessment / Plan
Gen-AAOx3, NAD
HEENT-NC, AT, anicteric, clear oral mm
Neck-supple
CV-reg, no M, +S1/S2
Lungs-clear B/L
Abd-soft, NT, ND
Ext-no edema
Musculoskeletal-no cyanosis, clubbing
Skin-warm and dry
Neuro-grossly non-focal
Psych-calm, cooperative
Cognitive dysfunction -doubt this represents acute TME. 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 Will defer to his outpatient neurologist after discharge. Discussed with family.
Neurogenic orthostatic hypotension due to Parkinson's. Compression stockings ordered. Midodrine 3 times daily.
Acute traumatic left iliopsoas tendon rupture -unclear if due to fall or cause of fall. Treat conservatively for now. Follow-up with orthopedics after discharge. PT/OT.
Hypokalemia -resolved.
Mild acute traumatic rhabdomyolysis -CPK slightly elevated and trending down.
Parkinson's disease -continue carbidopa/levodopa.
Atrial fibrillation - unknown type. Not on anticoagulation due to gait instability. Continue aspirin.
Anxiety disorder
Full code
Dispo -medically stable for discharge to SNF. CM aware
Anticipated Discharge: Today
Subjective/Interval History
-
Date of Service: June 11, 2024
denies pain
Objective Data
-
Labs:
Laboratory Results
06/11/24
07:39
WBC 9.6
Hgb 12.5 L
Hct 37.5 L
Plt Count 210
Sodium 140
Potassium 4.5
Chloride 105
Carbon Dioxide 26
BUN 18
Creatinine 0.9
Glucose 80
Calcium 8.8
Vital Signs:
Vital Signs
Temp Pulse Resp BP Pulse Ox
97.8 F 69 18 143/54 97
06/11/24 11:54 06/11/24 11:54 06/11/24 11:54 06/11/24 11:54 06/11/24 11:54
I&O
06/10/24 06/11/24 06/12/24
06:59 06:59 06:59
Intake Total 480 / 480 600 / 600
Output Total 1275 / 1275 850 / 850
Balance -795 / -795 -250 / -250
[2024-06-11 15:44] VITALS: BP 100/56; BP 123/72; PULSE 71; PULSE 85
--- NOTE | 2024-06-11 16:01 | PTCARENOTE ---
Pt awake and alert oriented to self/place; difficult to assess orientation d/t pt's expressive aphasia; speech frequently mumbled. Pt cooperative. RAO slowly; OOB to chair with assist x 1-2; unsteady w/OOB activity. VSS. On room air- pulse ox
100%, no SOB noted. Abd soft, rounded, joey PO well. Condom cath P/I mod amts clear leighton urine. resting in chair at present, no c/o. Will continue to monitor.
[2024-06-11] MEDS: LOVENOX 40 MG SC (17:39)
[2024-06-11 23:08] VITALS: BP 131/89
[2024-06-12] MEDS: SINEMET 25-100 1.5 TABLET PO ×4 (01:39→13:40)
[2024-06-12 04:31] VITALS: BMI 20.4
[2024-06-12 07:48] VITALS: BP 122/70
[2024-06-12 07:50] VITALS: BP 114/68
[2024-06-12] MEDS: ProAmatine 10 MG PO ×2 (08:07→13:40)
[2024-06-12] MEDS: ASPIRIN 325 MG PO (08:07)
[2024-06-12] MEDS: TYLENOL 1000 MG PO (08:07)
[2024-06-12] MEDS: KCL 20 MEQ PO (08:07)
[2024-06-12] MEDS: TOPROL XL 25 MG PO (08:07)
[2024-06-12] MEDS: LIDOCAINE 4% PATCH 1 PATCH TOPICAL (08:08)
[2024-06-12] MEDS: FLUSH (NSS) 1 FLUSH IV ×2 (08:09→08:10)
[2024-06-12] MEDS: DESENEX/MITRAZOL/ZEASORB 1 APPLIC TOPICAL (08:09)
--- NOTE | 2024-06-12 09:00 | CM ---
Spoke with Megan from [facility] . Provided 3 snf that were in network that could not accept pt today.
Auth Reference # [id number] Clinical faxed to [phone] Number [phone]. 06/11/24 to 06/13/24.
Sofiya at [facility] aware [phone] of above.
Called juanjo Agarwal he is aware of dc to [facility] and in agreement.
Ambulance requested Medical nec form completed.
[facility]
report [phone]
fax [phone]
PLAN To [facility] today
[2024-06-12 10:09] VITALS: BP 134/69; BP 91/47; BP 98/59; PULSE 72; PULSE 76; PULSE 83
--- NOTE | 2024-06-12 11:15 | W.PN.HOSP.TC ---
Today's Communication/Plan
-
monitor vitals
see plan
dc today
time of discharge 37 minutes
Assessment / Plan
Assessment / Plan
Gen-AAOx3, NAD
HEENT-NC, AT, anicteric, clear oral mm
Neck-supple
CV-reg, no M, +S1/S2
Lungs-clear B/L
Abd-soft, NT, ND
Ext-no edema
Musculoskeletal-no cyanosis, clubbing
Skin-warm and dry
Neuro-grossly non-focal
Psych-calm, cooperative
Cognitive dysfunction -doubt this represents acute TME. 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 Will defer to his outpatient neurologist after discharge. Discussed with family.
Neurogenic orthostatic hypotension due to Parkinson's. Compression stockings ordered. Midodrine 3 times daily.
Acute traumatic left iliopsoas tendon rupture -unclear if due to fall or cause of fall. Treat conservatively for now. Follow-up with orthopedics after discharge. PT/OT.
Hypokalemia -resolved.
Mild acute traumatic rhabdomyolysis -CPK slightly elevated and trending down.
Parkinson's disease -continue carbidopa/levodopa.
Atrial fibrillation - unknown type. Not on anticoagulation due to gait instability. Continue aspirin.
Anxiety disorder
Full code
Dispo -medically stable for discharge to SNF. CM aware
Anticipated Discharge: Today
Subjective/Interval History
-
Date of Service: June 12, 2024
denies pain
Objective Data
-
Vital Signs:
Vital Signs
Temp Pulse Resp BP Pulse Ox
98.2 F 75 18 114/68 99
06/12/24 07:50 06/12/24 08:07 06/12/24 07:50 06/12/24 08:07 06/12/24 07:50
I&O
1006/12/24 06/13/24
06:59 06:59 06:59
Intake Total 600 / 600 720 / 720
Output Total 850 / 850 1350 / 1350
Balance -250 / -250 -630 / -630
--- NOTE | 2024-06-12 11:17 | W.DCSUMMARY ---
Discharge Summary
Discharge Data
Date of Admission: 06/06/24
Date of Discharge: 06/12/24
-
Pending Results: No
Hospital Course
78-year-old male with past medical history of Parkinson's disease, atrial fibrillation, anxiety came to the hospital with ambulatory dysfunction with frequent falls. Patient was found to have acute traumatic left iliopsoas tendon rupture.
Orthopedic recommended patient to follow-up with them outpatient. Patient also had some cognitive dysfunction which was likely thought was secondary to evolving early dementia related to his Parkinson's disease. He also had acute traumatic
rhabdomyolysis which continue to improve. He was evaluated by physical therapy who recommended SNF. Once the symptoms continue to improve, he was then discharged to SNF with instructions to follow-up with all the physicians in outpatient.
Discharge Plan
-
Patient Disposition: Care Home/SNF
Discharge Diagnosis/Procedures: Suspect cognitive dysfunction and evolving early dementia possibly related to Parkinson's disease
Neurogenic orthostatic hypotension
Ambulatory dysfunction
Acute traumatic left iliopsoas tendon rupture
Diet: As tolerated
Activity: With assistance and As tolerated
Driving Restrictions: Not until seen by your Dr
Bathing Restrictions: None
Referrals:
Jhony Chris MD [Family Provider] - in less than 1 week
Mati Lopez MD [Active] - in one to two weeks (left iliopsoas tendon rupture)
Prescriptions:
New
miconazole nitrate [Miconazorb AF] 2 % Powder
1 applic topical BID Qty: 85 0RF
lidocaine 4 % Adhesive Patch,Medicated
1 patch topical DAILY Qty: 30 0RF
midodrine 5 mg Tablet
10 mg PO TID@0800,1300,1800 Qty: 0 0RF
acetaminophen [Tylenol Extra Strength] 500 mg Tablet
1,000 mg PO TID Qty: 0 0RF
Continued
aspirin 325 mg Tablet
325 mg PO DAILY
metoprolol succinate 25 mg Tablet Extended Release 24 Hr
25 mg PO DAILY
carbidopa-levodopa 25-100 mg Tablet
1.5 tab PO Q4H
Discharge Orders:
Discharge Patient (As Directed); Ordered 06/12/24
Ordered By: Guru Thomas
Discharge Date and Time
Discharge Date/Time: 06/12/24 15:01
Print Language: ARGENTINE
[2024-06-12 13:36] VITALS: BP 106/67
== END 2024-06-12 15:01 | DRG 57 ==
LOC: 4 EAST ACU 22:50
PROVIDERS: Registered Nurse; Student in an Organized Health Care Education/Training Program; ADMITTING PHYSICIAN Hospitalist; ATTENDING PHYSICIAN Internal Medicine; EMERGENCY PHYSICIAN Emergency Medicine; FAMILY PHYSICIAN Family Medicine
DX: G90.3 Multi-system degeneration of the autonomic nervous system (principal); R47.01 Aphasia; R65.10 Systemic inflammatory response syndrome (SIRS) of non-infectious origin without acute organ dysfunction; G20.A1 Parkinson's disease without dyskinesia, without mention of fluctuations; F02.80 Dementia in other diseases classified elsewhere, unspecified severity, without behavioral disturbance, psychotic disturbance, mood disturbance, and anxiety; I10 Essential (primary) hypertension; S09.90XA Unspecified injury of head, initial encounter; T79.6XXA Traumatic ischemia of muscle, initial encounter; S76.012A Strain of muscle, fascia and tendon of left hip, initial encounter; W19.XXXA Unspecified fall, initial encounter; Y92.009 Unspecified place in unspecified non-institutional (private) residence as the place of occurrence of the external cause; R29.6 Repeated falls; E87.6 Hypokalemia; E78.00 Pure hypercholesterolemia, unspecified; F41.9 Anxiety disorder, unspecified; I48.0 Paroxysmal atrial fibrillation; R01.1 Cardiac murmur, unspecified; M25.552 Pain in left hip; M54.9 Dorsalgia, unspecified; M62.81 Muscle weakness (generalized); R00.0 Tachycardia, unspecified; R31.9 Hematuria, unspecified; R53.81 Other malaise; R53.83 Other fatigue; R79.89 Other specified abnormal findings of blood chemistry; Z79.82 Long term (current) use of aspirin; Z79.899 Other long term (current) drug therapy
CPT/HCPCS: 70450; 71046; 73502; 74177; 80048; 80053; 81003; 82550; 83605; 83735; 85025; 85027; 87811; 93005; 96374; 97116; 97162; 97167; 97530; 97535; 99285; Q9967